=== PATIENT | male | born 1965 | race American Indian/Alaskan Native ===

== ENCOUNTER 2016-12-06 19:54 | Emergency (ER) | payer SELFPAY ==
[2016-12-06 20:29] VITALS: BP 141/103
== END 2016-12-06 21:40 | disposition left against medical advice (07) ==
LOC: EDSEX → ED 19:54
DX: R04.0 Epistaxis (principal); I10 Essential (primary) hypertension; Z88.6 Allergy status to analgesic agent; Z88.5 Allergy status to narcotic agent; Z87.891 Personal history of nicotine dependence; Z53.21 Procedure and treatment not carried out due to patient leaving prior to being seen by health care provider